=== PATIENT | female | born 1960 | race Caucasian/White ===

== ENCOUNTER 2019-09-01 10:17 | Outpatient (CLI) | payer OTHER, SELFPAY ==
--- NOTE | ~2019-09-01 | XR_ITS ---
EXAMINATION: XR shoulder LT min 2V EXAM DATE: 09/01/2019 10:41 INDICATION: No known recent injury provided at this time. Pain of the left shoulder. TECHNIQUE: The following left shoulder projections obtained: frontal projection with internal rotatio n, frontal projection with external rotation, Grashey, and axillary (4+ views). There is no prior st udy for comparison. FINDINGS: Small ossifications adjacent to the greater tuberosity of the left humeral head likely calc ific tendinosis. There is mild to moderate left acromioclavicular, mild glenohumeral primary osteoart hritis. There are no acute fractures or dislocations identified. There is no subcutaneous gas. The soft tissue is unremarkable. There are no radiopaque foreign bodies. IMPRESSION: 1. Mild to moderate left acromioclavicular, mild glenohumeral osteoarthritis. 2. Probable calcific tendinosis. Reviewed, dictated and finalized at location B. FLOOR REFINISHER
== END 2019-09-01 10:18 | disposition home or self-care (01) ==
LOC: ANHIMG 10:22
PROVIDERS: PCP Family Medicine Adolescent Medicine; Visit Provider Orthopaedic Surgery
DX: M19.012 Primary osteoarthritis, left shoulder (principal)
CPT/HCPCS: 73030

== ENCOUNTER 2019-09-26 16:49 | Emergency (ER) | payer OTHER, SELFPAY ==
[2019-09-26 16:59] VITALS: BP 114/64; PULSE 78; RESP 18; TEMP 37; O2SAT 99
--- NOTE | 2019-09-26 17:31 | ED.EAR ---
HPI - Ear Problem General Chief complaint: Ear Stated complaint: ear pain/dizzy Source: patient and RN notes reviewed Mode of arrival: ambulatory Limitations: no limitations History of Present Illness HPI Narrative: The patient, a non-smoker/nondrinker hospital employee, presents with half week history of left ear discomfort, associated and preceded with nasal congestion , cough and with a fever 100.5. No wheeze, calf pain/edema, sputum changes, precordial chest pain. Declines influenza testing being outside treatment window. Related Data Home Medications Medication Instructions Recorded Confirmed biotin 5,000 mcg disintegrating 10,000 mcg PO DAILY 09/07/19 09/26/19 tablet diclofenac sodium 75 mg 75 mg PO BID 09/07/19 09/26/19 tablet,delayed release glimepiride 2 mg tablet 2 mg PO QAM 09/07/19 09/26/19 lisinopril 10 mg tablet 20 mg PO DAILY 09/07/19 09/26/19 sitagliptin 100 mg tablet 100 mg PO DAILY 09/07/19 09/26/19 Allergies Allergy/AdvReac Type Severity Reaction Status Date / Time cephalexin Allergy Unknown Rash Verified 09/26/19 17:09 Cephalosporins Allergy Unknown Rash Verified 09/26/19 17:09 Sulfa (Sulfonamide Allergy Unknown Rash Verified 09/26/19 17:09 Antibiotics) Review of Systems Review of Systems: Narrative: General/Constitutional: No weight loss,reports fever Eyes: N0: Redness,discharge Ears/Nose/Throat: No: Epistaxis,ear discharge Respiratory: Denies: Hemoptysis Gastrointestinal: No Vomiting, Bleeding-rectal Skin: No Lumps, eruption PMFSH Social History Social History Smoking status: Never smoker Alcohol intake: never Comments At time of signature, agree with nursing past medical, surgical, social and family history. There is no relevant family history pertinent to the presenting complaint Exam Narrative: Exam Narrative: General Appearance: Well appearing, conjunctiva clear Ears: Auditory canal normal, left TM bulging, right TM normal Nose: Mild rhinorrhea, Mucousal erythema Mouth/Throat: MM moist, Uvula midline, Pharyngeal erythema Neck: Supple, No adenopathy Skin: Warm, Dry Neurological: A&O x3, Normal affect Course Vital Signs Vital signs: Vital Signs Temperature 98.6 F 09/26/19 16:59 Pulse Rate 78 09/26/19 16:59 Respiratory Rate 18 09/26/19 16:59 Blood Pressure 114/64 09/26/19 16:59 Pulse Oximetry 99 09/26/19 16:59 Temperature 98.6 F 09/26/19 16:59 Pulse Rate 78 09/26/19 16:59 Respiratory Rate 18 09/26/19 16:59 Blood Pressure 114/64 09/26/19 16:59 Pulse Oximetry 99 09/26/19 16:59 Medical Decision Making Vital Signs Vital Signs: Vital Signs Temperature 98.6 F 09/26/19 16:59 Pulse Rate 78 09/26/19 16:59 Respiratory Rate 18 09/26/19 16:59 Blood Pressure 114/64 09/26/19 16:59 Pulse Oximetry 99 09/26/19 16:59 Temperature 98.6 F 09/26/19 16:59 Pulse Rate 78 09/26/19 16:59 Respiratory Rate 18 09/26/19 16:59 Blood Pressure 114/64 09/26/19 16:59 Pulse Oximetry 99 09/26/19 16:59 Discharge Plan Discharge Clinical Impression: Otitis media Qualifiers: Otitis media type: suppurative Chronicity: acute Laterality: left Recurrence: non-recurrent Spontaneous tympanic membrane rupture: without spontaneous rupture Qualified Code(s): H66.002 - Acute suppurative otitis media without spontaneous rupture of ear drum, left ear Patient Disposition: Home, Self-Care Condition: Stable Instructions: Antibiotic Form, Ear Infection (ED) Prescriptions: New svuheoqo-deowcspug-WH 3.5-10,000-1 mg/mL-unit/mL-% solution 4 drp RIGHT EAR Q8H Qty: 10 RF: 0 azelastine 137 mcg (0.1 %) aerosol,spray 137 mcg NASAL Q12H Qty: 30 RF: 0 amoxicillin-pot clavulanate [Augmentin] 500-125 mg tablet 1 tablet PO TID Qty: 30 RF: 0 fluconazole 150 mg tablet 150 mg PO WEEKLY Qty: 2 RF: 1 codeine-guaifenesin 10-100 mg/5 mL liq
== END 2019-09-26 17:45 | disposition home or self-care (01) ==
PROVIDERS: Emergency Provider Emergency Medicine; PCP Family Medicine Adolescent Medicine
DX: H66.002 Acute suppurative otitis media without spontaneous rupture of ear drum, left ear (principal); I10 Essential (primary) hypertension
CPT/HCPCS: 99213; G0463

== ENCOUNTER 2019-11-18 17:48 | Emergency (ER) | payer OTHER, SELFPAY ==
--- NOTE | ~2019-11-18 | XR_ITS ---
EXAMINATION: XR foot RT min 3V DATE: 11/18/2019 18:57 INDICATION: Right toe injury. TECHNIQUE: 4 views of right foot were obtained. COMPARISON: Right foot radiographs 05/01/2011 FINDINGS: Bone alignment is normal. No fracture. There is severe osteoarthritis of first metatarsopha langeal joint and mild osteoarthritis of some the interphalangeal joints. There are enthesophytes at the posterior and plantar aspects of calcaneal tuberosity. IMPRESSION: 1. Polyarticular osteoarthritis. Reviewed, dictated and finalized at location A.
[2019-11-18 17:58] VITALS: BP 138/75; PULSE 88; RESP 18; TEMP 37.2; O2SAT 99
--- NOTE | 2019-11-18 19:28 | ED.LOWEXIN ---
HPI - Extremity Injury (Lower) General Chief Complaint: Extremity Injury, Lower Stated Complaint: R foot injury Time Seen by Provider: 11/18/19 19:08 Source: patient Mode of arrival: ambulatory Limitations: no limitations History of Present Illness HPI Narrative: Patient is a 59-year-old female who presents to the emergency department with complaint of pain to the right foot and between the third and fourth toes. Patient reports stubbing her right fourth toe approximately 7 to 10 days ago. Patient has now developed area of ecchymosis with a small hard knot on the dorsal aspect of the right foot directly between the third and fourth toes. Patient reports tenderness to touch. She reports more extensive ecchymosis noted over the last couple of days which is better today. She denies any known wounds, erythema, or warmth to touch. complaint: foot injury Onset (ago): week(s) Type of Injury: blunt Context: direct blow Related Data Home Medications Medication Instructions Recorded Confirmed biotin 5,000 mcg disintegrating 10,000 mcg PO DAILY 09/07/19 09/26/19 tablet diclofenac sodium 75 mg 75 mg PO BID 09/07/19 09/26/19 tablet,delayed release glimepiride 2 mg tablet 2 mg PO QAM 09/07/19 09/26/19 lisinopril 10 mg tablet 20 mg PO DAILY 09/07/19 09/26/19 sitagliptin 100 mg tablet 100 mg PO DAILY 09/07/19 09/26/19 Allergies Allergy/AdvReac Type Severity Reaction Status Date / Time cephalexin Allergy Unknown Rash Verified 09/26/19 17:09 Cephalosporins Allergy Unknown Rash Verified 09/26/19 17:09 Sulfa (Sulfonamide Allergy Unknown Rash Verified 09/26/19 17:09 Antibiotics) Penicillins Allergy Rash Verified 11/18/19 18:02 Review of Systems Review of Systems: All systems reviewed & are unremarkable except as noted in HPI and below PMFSH Past Medical History Medical History Calcific tendonitis of left shoulder Diabetes Surgical History Surgical History History of appendectomy (~2010) History of carpal tunnel release (~2011) History of hernia repair (~2010) Social History Social History Smoking status: Never smoker Alcohol intake: never Gender identity (if verbalized by the patient): Female Exam Const: General: cooperative, no acute distress and alert Nutritional Appearance: well nourished Orientation/consciousness: patient oriented x3 Limitations: no limitations Resp: Effort & Inspection: normal respiratory effort Cardio: Rate: regular rate Rhythm: regular rhythm Peripheral pulses: posterior tibial pulses present on the right 2+ and dorsalis pedis present on the right 2+ Skin: General skin exam: normal color Neuro: General: patient oriented x3 Cognition (Neuro): normal cognition Speech: normal speech Extrem: General: full ROM and no clubbing, cyanosis or edema Ankle/foot/toe images: 1. Small firm nodular area with surrounding ecchymosis. No erythema, fluctuance, or warmth to touch. Area is tender. No wounds noted Other: No wounds noted anywhere on the right foot. No signs to suggest infection. Psych: Mental Status: mental status grossly normal Affect: normal affect Attitude: cooperative Course Course Emergency Course: Discussed with patient what appears to be localized area of inflammation from recent blunt trauma with ecchymosis present. No findings at this time to suggest infection. No fractures noted on x-ray. Advised primary care follow-up if not improving and if any signs of infection develop. Vital Signs Vital signs: Vital Signs Temperature 98.9 F 11/18/19 17:58 Pulse Rate 88 11/18/19 17:58 Respiratory Rate 18 11/18/19 17:58 Blood Pressure 138/75 11/18/19 17:58 Pulse Oximetry 99 11/18/19 17:58 Temperature 98.9 F 11/18/19 17:58 Pulse Rate 88 11/18/19 17:58 Respiratory
[2019-11-18 19:49] VITALS: BP 133/81; PULSE 66; RESP 18; O2SAT 99
== END 2019-11-18 19:51 | disposition home or self-care (01) ==
PROVIDERS: Emergency Provider Emergency Medicine; PCP Family Medicine Adolescent Medicine
DX: S90.31XA Contusion of right foot, initial encounter (principal); E11.9 Type 2 diabetes mellitus without complications; Z79.84 Long term (current) use of oral hypoglycemic drugs; M19.071 Primary osteoarthritis, right ankle and foot; W22.8XXA Striking against or struck by other objects, initial encounter
CPT/HCPCS: 73630; 99283

== ENCOUNTER 2019-11-20 12:13 | Day surgery (SDC) | payer OTHER, SELFPAY ==
[2019-11-20 11:20] VITALS: BMI 29.2
--- NOTE | 2019-11-20 11:52 | HP_ITS ---
DATE OF SERVICE: 11/20/2019 PREOPERATIVE DIAGNOSIS: Diabetic abscess of the right foot. HISTORY: The patient is 59. She is a type 2 diabetic with questionable control. She had stubbed her right foot on the kitchen chair approximately on 11/11/2019, hurt for a bit, but gradually became bruised and more swollen, and after about 5 days or so, she went to the emergency room for evaluation thinking she might have broken her toe. X-rays were taken and there is no fracture. There is some osteoarthritis noted. She went home without other treatment, but this foot became sore, raised a pone over the third web space and she undertook drainage of that herself and released pus. She has not been placed on antibiotics up to that point. She called my office for an appointment and we got her in on 11/20/2019. We confirmed subcutaneous abscess in the third web space with some local cellulitis and generalized foot edema without lymphangitis and a .5 x .5 cm draining wound. We were able to obtain culture for aerobes and anaerobes. PAST MEDICAL AND SURGICAL HISTORY: She has a history of otitis media, calcified tendinitis in the left shoulder. She has had an appendectomy, carpal tunnel release, hernia repair, and is type 2 diabetic. MEDICATIONS: Her current medications include: 1. Glimepiride 2 mg every morning. 2. Januvia 100 mg daily. In addition to that, she uses: 1. Azelastine nasal inhaler. 2. Takes biotin 69136 mcg daily. 3. Some codeine guaifenesin q.6 hours. 4. Diclofenac 75 mg b.i.d. 5. Fluconazole 150 mg weekly. 6. Lisinopril 20 mg daily. She was recently treated for the external otitis with neomycin polymyxin drops by Dr. Garo Jones and apparently she was also given Augmentin at that time and found to develop a rash from Augmentin. ALLERGIES: HER OTHER KNOWN ALLERGIES ARE TO CEPHALEXIN AND TO SULFA DRUGS. APPARENTLY, SHE DEVELOPS A RASH TO EACH OF THESE. FAMILY HISTORY: Positive for some kidney disease, malignant neoplasm, malignant melanoma in her father, Parkinson's disease in her mother. SOCIAL HISTORY: She is a nonsmoker, uses no alcohol. She is and her , I believe, is diabetic and is an amputee. PHYSICAL EXAMINATION: GENERAL: The patient is alert, very cooperative, informative. She has had no recent sweats. HEENT: Unremarkable. CHEST: Clear to auscultation. HEART: Regular rate and rhythm by palpation. ABDOMEN: Soft and nontender. EXTREMITIES: Appear normal. She says she has no peripheral neuropathy and I did not test with that. She did tolerate my examination of the infected site, but did feel some pain. She has a bounding posterior tibial and dorsalis pedis pulse. The skin and nails are in excellent condition. The abscess is approximately 6 mm in diameter and is at the dorsal third web space. We were unable to drain significant pus from this area, but what we did get seemed fairly superficial. ASSESSMENT: Diabetic abscess of right foot, probably related to contusion. PLAN: I and D under general anesthesia today. We will begin her on clindamycin as soon as possible and we will send her culture from my office for aerobes and anaerobes. She will take approximately half of her normal diabetic medicine today. She has been n.p.o. today, self-imposed. She said her morning blood sugar was around 250. Plan is I and D of diabetic abscess, right foot. D I MT: Tyrese VALLADARES
[2019-11-20] MEDS: LACTATED RINGERS 1,000 ML 30 ML IV CONT (12:50)
--- NOTE | 2019-11-20 13:04 | ECG_ITS ---
Measurements Intervals [place] Rate: 82 P: -7 GA: 176 QRS: -55 QRSD: 178 T: -27 QT: 423 QTc: 496 Interpretive Statements SINUS RHYTHM RIGHT BUNDLE BRANCH BLOCK ABNORMAL ECG Electronically Signed On 11-20-2019 13:42:13 CDT by Toño Sutton D.O.
[2019-11-20 13:18] LABS: Blood Urea Nitrogen 11 mg/dL (7-17); Calcium 9.6 mg/dL (8.4-10.2); Carbon Dioxide 28 mmol/L (22-30); Chloride 103 mmol/L (98-107); Estimated CRCL calculation 86 ml/min; Estimated Glomerular Filt Rate > 60; Glucose 224 mg/dL (65-105); Potassium 3.7 mmol/L (3.4-5.0); Sodium 137 mmol/L (137-145)
--- NOTE | 2019-11-20 13:23 | WPDANESEPPF ---
Anes - Initial Pre Proc Eval Procedure: Operation Date: 11/20/19 14:00 Proposed Procedures p Incision and Drainage Right Diabetic Foot Infection(Right) - Dimas Flannery MD Date/Time: 11/20/19 13:23 Surgeon: Dimas Flannery MD Pre Op Diagnosis: Diabetic Foot Infection Patient Data Age: 59 Gender: F Height: 5 ft Weight: 69.5 kg Allergies Allergy/AdvReac Type Severity Reaction Status Date / Time cephalexin Allergy Severe Rash Verified 11/20/19 12:19 Cephalosporins Allergy Severe Rash Verified 11/20/19 12:19 Penicillins Allergy Severe Rash Verified 11/20/19 12:19 Sulfa (Sulfonamide Allergy Severe Rash Verified 11/20/19 12:19 Antibiotics) Home Medications Medication Instructions Recorded Confirmed Type biotin 5,000 mcg disintegrating 10,000 mcg PO DAILY 09/07/19 11/20/19 History tablet diclofenac sodium 75 mg 75 mg PO BID PRN 09/07/19 11/20/19 History tablet,delayed release glimepiride 2 mg tablet 2 mg PO BID 09/07/19 11/20/19 History lisinopril 10 mg tablet 10 mg PO DAILY 09/07/19 11/20/19 History sitagliptin 100 mg tablet 100 mg PO DAILY 09/07/19 11/20/19 History acetaminophen [Acetaminophen Extra 1,000 mg PO Q6H PRN 11/20/19 11/20/19 History Strength] clindamycin HCl 300 mg PO Q6H 11/20/19 11/20/19 History ibuprofen 800 mg PO Q6H PRN 11/20/19 11/20/19 History Laboratory Tests 11/20/19 13:02 Sodium 137 mmol/L mmol/L (137-145) Potassium 3.7 mmol/L mmol/L (3.4-5.0) Chloride 103 mmol/L mmol/L (98-107) Carbon Dioxide 28 mmol/L mmol/L (22-30) BUN 11 mg/dL D mg/dL (7-17) Creatinine 0.50 mg/dL L mg/dL (0.7-1.0) Estim Creat Clear Calc 86 ml/min ml/min Estimated GFR > 60 (59 - ) Glucose 224 mg/dL H mg/dL (65-105) Calcium 9.6 mg/dL mg/dL (8.4-10.2) Patient hx anesthesia problems: none Family hx anesthesia problems: none PMFSH Past Medical History Medical History Calcific tendonitis of left shoulder Diabetes Surgical History Surgical History History of appendectomy (~2010) History of carpal tunnel release (~2011) History of hernia repair (~2010) Family History Family History Sibling Hypertension Father Family history of malignant melanoma Mother Family history of Parkinson's disease Other Family history of kidney disease Family history of malignant neoplasm Social History Social History Smoking status: Never smoker Alcohol intake: never Gender identity (if verbalized by the patient): Female Anes - Eval Final PreProcedure Day of Procedure 11/20/19 13:23 Patient weight: overweight Heart: regular rate and rhythm Lungs: clear to auscultation Airway: Mallampati scale class II Neurological: alert and oriented Last oral intake: >/= 8 hours ASA classification: III Emergent: yes Anesthetic plan: proceed Anesthesia type and monitoring: general GIVS and standard monitoring Informed Consent: The patient's anesthetic plan and its attendant risks and benefits were discussed with the patient/family/POA. Questions were solicited and answers provided to the satisfaction of the patient/family/POA.
[2019-11-20 13:33] VITALS: BP 149/66; PULSE 85; RESP 16; TEMP 37.9; O2SAT 99
[2019-11-20] MEDS: CLINDAMYCIN 900 MG/NS 50 ML 900 MG/50 ML PIGGYBACK 50 MG IVPB (14:22)
--- NOTE | 2019-11-20 14:31 | P.OPB_ITS ---
Procedure Note - Brief Procedure Note - Brief Date of procedure: 11/20/19 Pre-op diagnosis: Diabetic Foot Infection Post-op diagnosis: other (Diabetic subcutaneous abscess of right forefoot. ) Procedure performed: I&D Anesthesia: MAC Surgeon: Dimas Flannery MD Python Web Developer: Chelsey Estimated blood loss (mL): 2 Tourniquet time (min): 0 Drains: No Packing: Yes Pathology: none sent (culture sent from my office today) Complications: No immediate complications Condition: stable Disposition: same day
[2019-11-20] MEDS: LIDO 1%/EPINEPHRINE 1:100,000 20 ML VIAL 10 ML INFILTRATE (14:43)
--- NOTE | 2019-11-20 14:50 | SUR.OPER ---
EBL 2
[2019-11-20 14:59] VITALS: BP 113/52; PULSE 89; RESP 20; O2SAT 100
[2019-11-20 15:14] LABS: Glucose Point of Care 182 (65-105)
--- NOTE | 2019-11-20 15:20 | P.OP_ITS ---
Procedure Note - Detailed Date of procedure: 11/20/19 Pre-op diagnosis: Diabetic Foot Infection Post-op diagnosis: other (SUBCUTANEOUS DIABETIC ABSCESS RIGHT FOOT) Procedure performed: SHARP DEBRIDEMENT OF SKIN AND SUBCUTANEOUS GANGRENOUS TISSUE 1.5 SQ CM RIGHT FOREFOOT Description of procedure: The right foot was marked with the patient in the holding area. She was taken to the operating room and placed supine on the opera ting table. A time-out was held and confirmed and she was given IV sedation. The right foot was prepped and draped in the usual fashion. This site was locally infiltrated with 1% lidocaine with epinephrine, 4 milliliter. A longitudinal incision was made approximately 2.5 cm. A gangrenous abscess cavity approximately 1 x 1 cm was identified. This was drained of pus. The subcutaneous medley and skin associated with it were excised with scissors in a 1 x 1.5 cm area. The pus did not extend deeper than the tendons or the intermetacarpal ligament. The site was copiously irrigated with more than 100 milliliter of saline. A couple of sites were electrocoagulated to control bleeding. A tourniquet was not utilized. The wound was dressed with approximately 10 in of quarter-inch iodoform gauze, 4 x 4, Ramu and 3 in Coban wrap. She was discharged from the operating room in stable condition. She received 900 mg of clindamycin IV before the case began. Estimated blood loss was 2 milliliter Surgeon: Dimas Flannery MD
[2019-11-20 15:25] VITALS: BP 119/57; PULSE 87; RESP 20; O2SAT 93
[2019-11-20 15:55] VITALS: BP 150/71; PULSE 86; RESP 18
== END 2019-11-20 16:07 | disposition home or self-care (01) ==
PROVIDERS: Anesthesiology; PCP Family Medicine Adolescent Medicine; Visit Provider Plastic Surgery
PROC: (CPT 11042; principal; 2019-11-20 14:00)
DX: E11.52 Type 2 diabetes mellitus with diabetic peripheral angiopathy with gangrene (principal); I96 Gangrene, not elsewhere classified; L02.611 Cutaneous abscess of right foot; Z79.84 Long term (current) use of oral hypoglycemic drugs
CPT/HCPCS: 11042; 36415; 80048; 93005; J2250; J2405; J2704; J3010; J7120

== ENCOUNTER 2019-12-27 13:00 | Outpatient (RCR) | payer OTHER, SELFPAY ==
[2019-12-01 13:48] VITALS: BMI 29.9
== END 2020-02-14 15:21 | disposition home or self-care (01) ==
LOC: ANHWOC 13:00
PROVIDERS: PCP Family Medicine Adolescent Medicine; Visit Provider Plastic Surgery
DX: S91.301D Unspecified open wound, right foot, subsequent encounter (principal); E11.9 Type 2 diabetes mellitus without complications
CPT/HCPCS: 99211; 99212; G0463

== ENCOUNTER 2020-01-17 20:13 | Emergency (ER) | payer OTHER, SELFPAY ==
[2020-01-17 20:14] VITALS: BP 199/105; PULSE 112; RESP 18; TEMP 37.1; O2SAT 100
--- NOTE | 2020-01-17 20:27 | ED.DENTAL ---
HPI - Dental/Oral General Chief complaint: Dental/Oral <ELISE Pepe Last Filed: 01/17/20 20:34> Stated complaint: dental abscess <ELISE Pepe Last Filed: 01/17/20 20:34> Time Seen by Provider: 01/17/20 20:18 <ELISE Pepe Last Filed: 01/17/20 20:34> Source: patient <ELISE Pepe Last Filed: 01/17/20 20:34> Mode of arrival: ambulatory <ELISE Pepe Last Filed: 01/17/20 20:34> Limitations: no limitations <ELISE Pepe Last Filed: 01/17/20 20:34> History of Present Illness HPI Narrative: Patient is a 59-year-old female who presents with left lower dental pain history of an infected Has seen her dentist today was told she had an abscess started on clindamycin and has continued to have moderate aching pain despite taking darf-ipl-drkpdwa medications patient denies any fever chills nausea vomiting and on arrival to emergency department is in mild pain distress patient notes nausea but denies vomiting URI symptoms or other complaints <ELISE Pepe Last Filed: 01/17/20 20:34> Related Data Home medications: Home Medications Medication Instructions Recorded Confirmed biotin 5,000 mcg disintegrating 10,000 mcg PO DAILY 09/07/19 11/20/19 tablet diclofenac sodium 75 mg 75 mg PO BID PRN 09/07/19 11/20/19 tablet,delayed release glimepiride 2 mg tablet 2 mg PO BID 09/07/19 11/20/19 lisinopril 10 mg tablet 10 mg PO DAILY 09/07/19 11/20/19 sitagliptin 100 mg tablet 100 mg PO DAILY 09/07/19 11/20/19 acetaminophen [Acetaminophen Extra 1,000 mg PO Q6H PRN 11/20/19 11/20/19 Strength] clindamycin HCl 300 mg PO Q6H 11/20/19 11/20/19 ibuprofen 800 mg PO Q6H PRN 11/20/19 11/20/19 <ELISE Pepe Last Filed: 01/17/20 20:34> Allergies/adverse reactions: Allergies Allergy/AdvReac Type Severity Reaction Status Date / Time cephalexin Allergy Severe Rash Verified 01/17/20 20:18 Cephalosporins Allergy Severe Rash Verified 01/17/20 20:18 Penicillins Allergy Severe Rash Verified 01/17/20 20:18 Sulfa (Sulfonamide Allergy Severe Rash Verified 01/17/20 20:18 Antibiotics) <Joselo Horvath PA-C - Last Filed: 01/17/20 20:34> Review of Systems Review of Systems: All systems reviewed & are unremarkable except as noted in HPI and below <Joselo Horvath PA-C - Last Filed: 01/17/20 20:34> PMFSH Past Medical History Medical History: Medical History Calcific tendonitis of left shoulder Diabetes <Joselo Horvath PA-C - Last Filed: 01/17/20 20:34> Surgical History Surgical History: Surgical History History of appendectomy (~2010) History of carpal tunnel release (~2011) History of hernia repair (~2010) <Joselo Horvath PA-C - Last Filed: 01/17/20 20:34> Social History Social History: Social History Smoking status: Never smoker Alcohol intake: never Gender identity (if verbalized by the patient): Female <Joselo Horvath PA-C - Last Filed: 01/17/20 20:34> Exam Narrative: Exam Narrative: GENERAL: Well-appearing, well-nourished, and in no acute distress. HEAD: Normocephalic, atraumatic. EYES: PERRLA and EOMI. ENT: Nares clear, no rhinorrhea or epistaxis. Mucous membranes moist. Oropharynx without tonsillar hypertrophy exudate or other lesions. Tenderness of the lower posterior molar there is no swelling of the gumline or drainable abscesses tissues of the oropharynx are soft. Uvula midline no trismus or drooling CHEST: Clear to auscultation. No respiratory distress. No wheezes rales or rhonchi HEART: Regular rate and rhythm. No murmur heard.. EXTREMITIES: Normal range of motion. No edema. SKIN: Warm, dry, no rash. NEURO: No focal deficits. Alert and oriented x3. PSYCH: Normal mood and
[2020-01-17] MEDS: ONDANSETRON HCL ODT 4 MG TABLET PO (20:33)
[2020-01-17] MEDS: IBUPROFEN 600 MG TABLET PO (20:33)
[2020-01-17 20:42] VITALS: BP 199/108; PULSE 112; RESP 20; TEMP 37.1; O2SAT 100
== END 2020-01-17 20:42 | disposition home or self-care (01) ==
PROVIDERS: Emergency Provider Emergency Medicine; PCP Family Medicine Adolescent Medicine
DX: K08.89 Other specified disorders of teeth and supporting structures (principal); E11.9 Type 2 diabetes mellitus without complications; Z79.84 Long term (current) use of oral hypoglycemic drugs
CPT/HCPCS: 99283; A9270

== ENCOUNTER 2021-03-31 07:08 | Outpatient (CLI) | payer OTHER, SELFPAY ==
[2021-03-31 08:08] LABS: Alanine Aminotransferase 25 U/L (4-35); Albumin Level 4.1 g/dL (3.5-5.1); Alkaline Phosphatase 116 U/L (38-126); Anion Gap 8 mmol/L (8-16); Aspartate Amino Transferase 22 U/L (14-36); Bilirubin,Total 0.4 mg/dL (0.2-1.3); Blood Urea Nitrogen 21 mg/dL (7-17); Calcium 9.4 mg/dL (8.4-10.2); Carbon Dioxide 26 mmol/L (22-30); Chloride 104 mmol/L (98-107); Cholesterol 238 mg/dL (0-200); Estimated Glomerular Filt Rate > 60; Glucose 261 mg/dL (65-110); HDL Direct 39 mg/dL; Sodium 138 mmol/L (137-145); Triglycerides 283 mg/dL (<150)
[2021-03-31 08:19] LABS: LDL Cholesterol Direct 110 mg/dL
== END 2021-03-31 07:09 | disposition home or self-care (01) ==
PROVIDERS: PCP Family Medicine Adolescent Medicine; Visit Provider Family Medicine Adolescent Medicine
DX: I10 Essential (primary) hypertension (principal); E11.65 Type 2 diabetes mellitus with hyperglycemia; E78.00 Pure hypercholesterolemia, unspecified
CPT/HCPCS: 36415; 80053; 80061; 83036

== ENCOUNTER 2021-10-08 07:41 | Outpatient (CLI) | payer OTHER, SELFPAY ==
[2021-10-08 08:23] LABS: Hemoglobin A1C 8.3 % (<5.7)
[2021-10-08 08:25] LABS: Alanine Aminotransferase 25 U/L (4-35); Cholesterol 224 mg/dL (0-200); HDL Direct 38 mg/dL; Triglycerides 232 mg/dL (<150)
[2021-10-08 08:35] LABS: LDL Cholesterol Direct 119 mg/dL
== END 2021-10-08 07:42 | disposition home or self-care (01) ==
LOC: ANHLAB 07:43
PROVIDERS: PCP Family Medicine Adolescent Medicine; Visit Provider Physician Assistant
DX: E78.00 Pure hypercholesterolemia, unspecified (principal); Z51.81 Encounter for therapeutic drug level monitoring; Z79.899 Other long term (current) drug therapy; E11.65 Type 2 diabetes mellitus with hyperglycemia
CPT/HCPCS: 36415; 80061; 83036; 84460

== ENCOUNTER 2023-01-14 15:15 | Outpatient (CLI) | payer OTHER, SELFPAY ==
--- NOTE | ~2023-01-14 | MM_ITS ---
EXAMINATION: MM screening nessa BI w nayan HISTORY: Screening mammogram TECHNIQUE: Craniocaudal and mediolateral oblique 3-D tomosynthesis images were obtained and synthetic 2-D images were generated. CAD analysis was submitted and interpreted. COMPARISON: 06/19/2016, 01/31/2014 bilateral screening mammogram examinations BREAST PARENCHYMAL COMPOSITION: There are scattered areas of fibroglandular density. FINDINGS: There is no evidence of suspicious mass, calcification, or architectural distortion to sugg est malignancy in either breast. There has been no suspicious interval change. IMPRESSION: 1. No mammographic evidence of malignancy. 2. Recommend routine screening mammography in one year. BI-RADS Category 1: Negative Reviewed, dictated and finalized at location A.
== END 2023-01-14 15:16 | disposition home or self-care (01) ==
PROVIDERS: PCP Family Medicine Adolescent Medicine; Visit Provider Family Medicine Adolescent Medicine
DX: Z12.31 Encounter for screening mammogram for malignant neoplasm of breast (principal)
CPT/HCPCS: 77063; 77067

== ENCOUNTER 2024-02-14 06:59 | Outpatient (CLI) | payer OTHER, SELFPAY ==
[2024-02-14 07:54] LABS: Alanine Aminotransferase 27 U/L (6-35); Albumin Level 4.3 g/dL (3.5-5.1); Alkaline Phosphatase 113 U/L (38-126); Anion Gap 11 mmol/L (4-12); Aspartate Amino Transferase 21 U/L (14-36); Bilirubin,Total 0.5 mg/dL (0.2-1.3); Blood Urea Nitrogen 27 mg/dL (7-17); Calcium 9.3 mg/dL (8.4-10.2); Carbon Dioxide 25 mmol/L (22-30); Chloride 103 mmol/L (98-107); Cholesterol 244 mg/dL (0-200); Estimated Glomerular Filt Rate > 60; Glucose 218 mg/dL (65-110); HDL Direct 31 mg/dL; Hemoglobin A1C 11.1 % (<5.7); Potassium 4.5 mmol/L (3.4-5.0); Sodium 139 mmol/L (137-145); Triglycerides 515 mg/dL (<150)
[2024-02-14 08:06] LABS: LDL Cholesterol Direct 92 mg/dL
== END 2024-02-14 07:00 | disposition home or self-care (01) ==
PROVIDERS: PCP Family Medicine Adolescent Medicine; Visit Provider Family Medicine Adolescent Medicine
DX: E11.9 Type 2 diabetes mellitus without complications (principal); E78.00 Pure hypercholesterolemia, unspecified; I10 Essential (primary) hypertension
CPT/HCPCS: 36415; 80053; 80061; 83036

== ENCOUNTER 2024-05-31 07:15 | Outpatient (CLI) | payer OTHER, SELFPAY ==
--- NOTE | ~2024-05-31 | XR_ITS ---
XR shoulder RT min 2V Ordering provider: Ismael Cardenas MD History: . M25.511 - Pain in right shoulder, hx recent fall . Comparison: None. FINDINGS: BONES: No acute fracture or dislocation. Degenerative changes in the area of the greater tuberosity.. Small bony shadow is projected over the humeral head possibility of a chip fracture cannot be exclud ed but this also may be degenerative. CT evaluation advised. JOINT SPACES: The acromioclavicular joint shows mild osteoarthritic changes. The glenohumeral joint i s normal. SOFT TISSUES: Normal. IMPRESSION: Small bony shadow is projected over the humerus. CT evaluation advised. Reviewed, dictated and finalized at location A. TECHNOLOGIST
== END 2024-05-31 07:16 | disposition home or self-care (01) ==
PROVIDERS: PCP Family Medicine Adolescent Medicine; Visit Provider Orthopaedic Surgery
DX: M25.511 Pain in right shoulder (principal); W19.XXXA Unspecified fall, initial encounter
CPT/HCPCS: 73030

== ENCOUNTER 2024-10-11 09:17 | Outpatient (CLI) | payer OTHER, SELFPAY ==
--- NOTE | ~2024-10-11 | XR_ITS ---
3 VIEWS LUMBAR SPINE Ordering provider: Erum Rodas DC History: . CHRONIC PAIN IN CERVICAL AND LUMBAR SPINE . Comparison: None. FINDINGS: VERTEBRAL BODIES: No visible fracture or subluxation. Degenerative changes of the spine. DISK SPACES: Narrowing of the disc L3-L4. SOFT TISSUES: Atherosclerotic changes of the aorta. Stone in the left kidney is highly suggestive. IMPRESSION: No acute osseous abnormality lumbar spine. Degenerative spine. Degenerative disc disease at the level of L3-L4. Left kidney stone. Reviewed, dictated and finalized at location A.
--- NOTE | ~2024-10-11 | XR_ITS ---
[id number] 10/11/2024 09:50 Indication: Chronic neck pain Procedure: 3 views cervical spine Comparison: No prior studies for comparison. Findings: There is straightening of cervical lordosis. There is degenerative anterolisthesis at C4-5 and C5-6. There is disc narrowing and endplate hypertrophy at C6-7. Odontoid process is normal. Later al masses normally aligned. There is advanced multilevel facet hypertrophy. There are lesser degenera tive changes in the uncinate joints. Lung apices are normal. No prevertebral soft tissue swelling. Impression: 1: Severe cervical spondylosis. Reviewed, dictated and finalized at location A. Impression: 1: Severe cervical spondylosis.
== END 2024-10-11 09:18 | disposition home or self-care (01) ==
PROVIDERS: PCP Family Medicine Adolescent Medicine
DX: M99.03 Segmental and somatic dysfunction of lumbar region (principal); M99.01 Segmental and somatic dysfunction of cervical region
CPT/HCPCS: 72040; 72100

== ENCOUNTER 2024-11-30 18:04 | Emergency (ER) | payer OTHER, SELFPAY ==
--- NOTE | 2024-11-30 18:07 | ED_ITS ---
HPI - Ear Problem General Chief complaint: Ear Stated complaint: ear ache and fever Time Seen by Provider: 11/30/24 18:07 Source: patient Mode of arrival: ambulatory Limitations: no limitations History of Present Illness HPI Narrative: Juliette is a 64-year-old female patient presenting to the clinic today with complaints of runny nose, cough, sore throat, dizziness, nasal congestion, ear pain and fever x3 days. She reports did at home COVID test yesterday and was negative. Temperature is 101° at home. Took Tylenol yesterday. Has not had anything for pain or fever today. Related Data Home Medications Medication Instructions Recorded Confirmed Last Taken Type acetaminophen 500 mg tablet 1,000 mg PO Q6H PRN Pain 11/20/19 06/21/24 11/18/19 History (Acetaminophen Extra Strength) Allergies Allergy/AdvReac Type Severity Reaction Status Date / Time cephalexin Allergy Severe Rash Verified 11/30/24 18:14 Cephalosporins Allergy Severe Rash Verified 11/30/24 18:14 Penicillins Allergy Severe Rash Verified 11/30/24 18:14 Sulfa (Sulfonamide Allergy Severe Rash Verified 11/30/24 18:14 Antibiotics) atorvastatin AdvReac Intermediate Diarrhea Verified 11/30/24 18:14 Review of Systems Review of Systems: Pertinent positives per HPI. Patient denies any rash, headache, visual changes, shortness of breath, chest pain, palpitations, nausea, vomiting, diarrhea, constipation, abdominal pain, or any urinary issues. [facility] Past Medical History Medical History Calcific tendonitis of left shoulder Diabetes Surgical History Surgical History History of appendectomy (~2010) 2010 History of blepharoplasty 2014 History of carpal tunnel release (~2011) History of hernia repair (~2010) 2010 Incisional hernia Family History Family History Sibling Hypertension Father Family history of malignant melanoma Mother Family history of Parkinson's disease Other Family history of kidney disease Family history of malignant neoplasm Social History Social History Smoking status: Never smoker Second hand tobacco smoke exposure: No Alcohol intake: never Substance use: never Substance use type: does not use Living arrangements: with family Occupation/Education: occupation Gender identity (if verbalized by the patient): Female Sexual Orientation (if Verbalized by the Patient): Straight or Heterosexual Spiritual care concerns: No Agree to blood products: Yes Comments At the time of my signature, I reviewed and agree with the nursing past medical, surgical, social, and family history. There is no relevant family history pertinent to the patient complaint. Exam Narrative: General: Well-developed, well nourished, in no apparent distress Head: Normocephalic, atraumatic Eyes: Pupils equally round and reactive to light bilaterally, EOM intact, sclera and conjunctive clear, no discharge, lids normal Ears: Left TMs intact and congested, right TM intact, bulging, red, ear canals clear, no drainage, grossly hearing normal. Nose: Nares patent, clear nasal discharge, moderate inflammation, no sinus tenderness. Mouth: Oral pharynx red without lesions or masses, good dentition, MMM. Postnasal drip Neck: Supple, trachea midline, no enlargement of anterior or posterior cervical nodes, no thyroid masses or goiter palpable. Cardio: Regular rate and rhythm, s1 and s2 normal, no murmur appreciated. Resp: Clear to auscultation bilaterally, no rhonchi, rales, wheezing or rubs Course Course Emergency Course: Portions of this record may have been created with voice recognition software. Level of Care: Express Care Visit Vital Signs Vital signs: Vital signs reviewed Medical Decision Making MDM Narrative Medical decision making narrative: At the time of visit patient is resting comfortably on the exam table. Patient appears to be nontoxic. Plan: I suspect patient has URI with cough and congestion and right otitis media. Prescription for amoxicillin was sent to the pharmacy. Patient reports she has taken penicillins before without reaction. Has allergies to cefdinir and sulfa. Supportive measures were discussed with the patient and they voiced understanding discharge instructions and agrees to treatment plan. Return precautions reviewed Differential Diagnosis Differential Diagnosis: Otitis media, otitis externa, eustachian tube dysfunction, cerumen impaction, upper respiratory infection, serous otitis, COVID, influenza, strep Discharge Plan Discharge Clinical Impression: Acute right otitis media, Upper respiratory infection with cough and congestion Patient Disposition: Home Condition: Stable Instructions: Antibiotic Form, Ear Infection (ED), Cold Symptoms (ED) Additional Instructions: Take prescription medications only as prescribed-amoxicillin Keep a tight control on your blood sugar Increase fluids and stay well hydrated Tylenol/motrin for pain/fever Flonase and OTC antihistamines such as Zyrtec or Claritin as directed Vicks vapor rub to open sinuses Sinus rinses for congestion Cepacol spray, cough drops, throat lozenges, warm tea with honey/lemon, gargle salt water to soothe throat BRAT diet for diarrhea Clear liquids x 24 hours then advance as tolerated for nausea/vomiting Go to the ED if you develop a worsening in your condition- high fever not controlled by Tylenol or Motrin, dehydration, weakness, lethargy, shortness of breath, or chest pain. Follow up with your PCP in 3-5 days if symptoms persist. Patient Language: [place] Citizen Prescriptions: New amoxicillin 875 mg tablet 875 mg PO Q12H 10 Days Qty: 20 0RF No Action (DME) lancets 30 gauge misc See Rx Instructions .Route Qty: 100 2RF Rx Instructions: Use 1 daily to test blood glucose acetaminophen [Acetaminophen Extra Strength] 500 mg Tablet 1,000 mg PO Q6H PRN (Reason: Pain) (DME) Contour Next Test Strips Strip See Rx Instructions .Route Qty: 100 5RF Rx Instructions: Use tid to test blood glucose saxagliptin 5 mg tablet 5 mg PO DAILY Qty: 90 1RF Ozempic 1 mg/dose (4 mg/3 mL) pen injector 1 mg subcut WEEKLY Qty: 3 5RF (DME) pen needle, diabetic 32 gauge x 5/32 needle See Rx Instructions .Route Qty: 100 2RF Rx Instructions: Use 1 daily to inject insulin lisinopril 10 mg tablet 10 mg PO DAILY Qty: 90 0RF diclofenac sodium 75 mg tablet,delayed release (DR/EC) See Rx Instructions .ROUTE .COMPLEX Qty: 60 5RF Dose Instruction: TAKE 1 TABLET BY MOUTH TWICE A DAY FOR PAIN Rx Instructions: TAKE 1 TABLET BY MOUTH TWICE A DAY FOR PAIN insulin glargine [Lantus Solostar U-100 Insulin] 100 unit/mL (3 mL) insulin pe n 40 unit subcut QPM Qty: 36 1RF insulin glargine [Lantus Solostar U-100 Insulin] 100 unit/mL (3 mL) insulin pen 40 unit subcut QPM Qty: 36 2RF hydrocodone-acetaminophen 5-325 mg tablet 1 tablet PO Q4H PRN (Reason: pain) Qty: 30 0RF Follow-up/Referrals: Bassam Fisher MD [Primary Care Provider] - Time of Disposition: 18:19 Quality NIHSS Nursing Documentation ED NIHSS nursing documentation: reviewed/agree
[2024-11-30 18:13] VITALS: BP 164/70; PULSE 105; RESP 18; TEMP 37.2; O2SAT 100
== END 2024-11-30 18:20 | disposition home or self-care (01) ==
PROVIDERS: Emergency Provider Nurse Practitioner Family; PCP Family Medicine Adolescent Medicine
DX: H66.91 Otitis media, unspecified, right ear (principal); J06.9 Acute upper respiratory infection, unspecified; R05.9 Cough, unspecified; E11.9 Type 2 diabetes mellitus without complications; Z79.4 Long term (current) use of insulin; Z79.85 Long-term (current) use of injectable non-insulin antidiabetic drugs
CPT/HCPCS: 99213; G0463

== ENCOUNTER 2025-01-25 07:21 | Outpatient (CLI) | payer OTHER, SELFPAY ==
[2025-01-25 08:12] LABS: Alanine Aminotransferase 21 U/L (6-35); Albumin Level 3.9 g/dL (3.5-5.1); Alkaline Phosphatase 86 U/L (38-126); Anion Gap 8 mmol/L (4-12); Aspartate Amino Transferase 26 U/L (14-36); Bilirubin,Total 0.7 mg/dL (0.2-1.3); Blood Urea Nitrogen 21 mg/dL (7-17); Calcium 9.4 mg/dL (8.4-10.2); Carbon Dioxide 25 mmol/L (22-30); Chloride 104 mmol/L (98-107); Estimated Glomerular Filt Rate > 60; Glucose 183 mg/dL (65-110); Potassium 4.8 mmol/L (3.4-5.0); Sodium 137 mmol/L (137-145); Total Protein 7.4 g/dL (6.3-8.2)
[2025-01-25 08:25] LABS: Hemoglobin A1C 10.7 % (<5.7)
== END 2025-01-25 07:22 | disposition home or self-care (01) ==
LOC: ANHLAB 07:23
PROVIDERS: PCP Family Medicine Adolescent Medicine; Visit Provider Family Medicine Adolescent Medicine
DX: E78.00 Pure hypercholesterolemia, unspecified (principal); I10 Essential (primary) hypertension; E11.65 Type 2 diabetes mellitus with hyperglycemia
CPT/HCPCS: 36415; 80053; 83036

== ENCOUNTER 2025-02-12 13:14 | Outpatient (CLI) | payer OTHER, SELFPAY ==
--- NOTE | ~2025-02-12 | MM_ITS ---
EXAMINATION: MM screening nessa BI w nayan HISTORY: Screening TECHNIQUE: Craniocaudal and mediolateral oblique 3-D tomosynthesis images were obtained and synthetic 2-D images were generated. CAD analysis was submitted and interpreted. COMPARISON: Comparison to multiple prior studies sequentially, with oldest reviewed study dated 08/2015. BREAST PARENCHYMAL COMPOSITION: Not dense: There are scattered areas of fibroglandular density. FINDINGS: There is no evidence of suspicious mass, calcification, or architectural distortion to sugg est malignancy in either breast. There has been no suspicious interval change. IMPRESSION: 1. No mammographic evidence of malignancy. 2. Recommend routine screening mammography in one year. BI-RADS Category 1: Negative Reviewed, dictated and finalized at location B.
== END 2025-02-12 13:15 | disposition home or self-care (01) ==
LOC: CHSIMG 13:16
PROVIDERS: PCP Family Medicine Adolescent Medicine; Visit Provider Family Medicine Adolescent Medicine
DX: Z12.31 Encounter for screening mammogram for malignant neoplasm of breast (principal)
CPT/HCPCS: 77063; 77067

== ENCOUNTER 2025-05-31 11:07 | Outpatient (CLI) | payer OTHER, SELFPAY ==
[2025-05-31 12:06] LABS: Hemoglobin A1C 10.4 % (<5.7)
== END 2025-05-31 11:08 | disposition home or self-care (01) ==
LOC: ANHLAB 11:16
PROVIDERS: PCP Family Medicine Adolescent Medicine; Visit Provider Family Medicine Adolescent Medicine
DX: E11.65 Type 2 diabetes mellitus with hyperglycemia (principal)
CPT/HCPCS: 36415; 83036